=== PATIENT | female | born 1995 | race African-American/Black ===

== ENCOUNTER 2018-12-14 16:49 | Emergency (ER) | payer OTHER ==
[2018-12-14 18:05] LABS: #Basophils 0.1 thou/uL (0.0-0.2); #Eosinphils 0.1 thou/uL (0.0-0.7); #Lymphocytes 2.2 thou/uL (1.20-3.40); #Monocytes 0.4 thou/uL (0.11-0.59); #Neutrophils 2.3 thou/uL (1.40-6.50); %Lymphocytes 43.4 % (21.0-51.0); %Monocytes 8.4 % (0.0-10.0); %Neutrophils 46.2 % (42.0-75.0); Hemoglobin 12.1 g/dL (12.0-16.0); Mean Corpuscular HGB CONC 32.8 g/dL (32.0-36.0); Mean Corpuscular Hemoglobin 27.4 pg (27.0-31.0); Mean Corpuscular Volume 83.7 fL (78.0-98.0); Mean Platelet Volume 9.8 fL (7.4-10.4); Platelet Count 179 thou/uL (130-400); RBC Distribution Width 12.6 % (11.5-14.5); White Blood Cell (WBC) Count 5.1 thou/uL (4.8-10.8)
[2018-12-14] MEDS ORDERED: Adacel (T-DAP) 0.5 ML SYRINGE ONE (18:05)
[2018-12-14 18:23] LABS: ALT (SGPT) 11 U/L (8-55); AST (SGOT) 18 U/L (5-34); Albumin 4.1 g/dL (3.5-5.0); Alkaline Phosphatase 86 U/L (40-110); Anion Gap 11 mmol/L (10-20); BUN (Urea Nitrogen) 7 mg/dL (7.0-18.7); Bilirubin, Total 0.2 mg/dL (0.2-1.2); Calc. Creatinine Clearance 0 mL/min (70-130); Carbon Dioxide 25 mmol/L (22-29); Chloride 106 mmol/L (98-107); Estimated GFR-MDRD 78; Globulin 3.3 g/dL (2.4-3.5); Glucose 81 mg/dL (70-105); Potassium 3.9 mmol/L (3.5-5.1); Protein, Total 7.4 g/dL (6.0-8.3); Sodium 138 mmol/L (136-145)
== END 2018-12-14 18:44 | disposition home or self-care (01) ==
LOC: ERS 16:49
DX: T63.481A Toxic effect of venom of other arthropod, accidental (unintentional), initial encounter (principal)
CPT/HCPCS: 36415; 80053; 85025; 90715; 99283

== ENCOUNTER 2019-05-19 21:05 | Emergency (ER) | payer MEDICAID, SELFPAY ==
[2019-05-19] MEDS ORDERED: Fluorescein Opthalmic Strip ONE (22:09)
[2019-05-19] MEDS ORDERED: Proparacaine 0.5% Opth 15 ML BOT ONE (22:09)
== END 2019-05-19 21:19 | disposition left against medical advice (07) ==
LOC: ERS 21:05
DX: H10.9 Unspecified conjunctivitis (principal)
CPT/HCPCS: 99283